=== PATIENT | male | born 1935 | race Caucasian/White ===

== ENCOUNTER 2019-05-28 11:58 | Inpatient (IN) | payer MEDICARE, BC ==
[~2019-05-28] VITALS: Ht 172.7 cm; Wt 77.2 kg
[~2019-05-28 11:58] MED LIST: ASPIRIN 81M81 MG/TA2 PO; FISH OIL SUPER1 SGL PO; GLUCOSAMINE & C1 TA3 PO; LOPRESSOR100 MG PO; PRINZIDE 12.5 M1 TA1 PO; VITAMIN D31000 IU PO; ZOCOR 10MG10 MG PO
[2019-05-28] MEDS ORDERED: ALBUTEROL S0.4 MG/ML (13:39)
[2019-05-28] MEDS ORDERED: ELIQUIS 2.5 PO (13:39)
[2019-05-28] MEDS ORDERED: CARDIZEM LA120 MG PO (13:44)
[2019-05-28] MEDS ORDERED: SYNTHROID0.075 MG/T PO (13:44)
[2019-05-28] MEDS ORDERED: K-DUR 10 MEQ T10 MEQ PO (13:45)
[2019-05-28] MEDS ORDERED: ZOCOR 20MG20 MG PO (13:47)
[2019-05-28] MEDS ORDERED: THEO-24 20200 MG/CAP PO (13:48)
[2019-05-28] MEDS ORDERED: RT SPIRIVA18 MCG IH (13:48)
[2019-05-28] MEDS ORDERED: ALBUTEROL0.83 MG/ML (13:50)
--- NOTE | 2019-05-28 14:30 | NUR ---
Patient here from [facility]. Alert and oriented x 3. Patient and family oriented to room. Initial and [address] Mina for orders. Denies further needs at this time.
[2019-05-28 14:39] VITALS: BP 179/75; PULSE 72; TEMP 97.5
[2019-05-28 16:01] VITALS: BP 182/79; PULSE 67; TEMP 97.7
--- NOTE | 2019-05-28 19:29 | NUR ---
Dr. Mina was notified of increased BP. Hospitalist consulted. Patient has done well. Sitting up on edge of bed eating Jello. denies pain. States he did have some liquid stool before transfering from marlette. Fluids infusing per orders to right hand IV. Denies further needs at this time. Reported off to photographer apprentice.
--- NOTE | 2019-05-28 20:00 | NUR ---
Pt in bed, is alert and oriented x4. Has oxygen on at 3L/NC, chronic dependency. Abd soft, hypoactive BS noted. Has not vomited since taking few clear liquids earlier, abd distended but soft. IV to right hand with IVF infusing without problem. Jessee CORDOVA in to see pt.
[2019-05-28 20:09] VITALS: BP 163/72; PULSE 94; TEMP 98.1
--- NOTE | 2019-05-28 22:00 | NUR ---
HS meds given including Percocet for mild discomfort and sleep. Telemetry placed on patient, noted SR.
[2019-05-29] VITALS (8 sets, daily range): BP systolic 119–181; BP diastolic 55–82; PULSE 62–80; TEMP 97.4–98.5
[2019-05-29] MEDS ORDERED: BROVANA15 MCG/2 M IH (00:03)
--- NOTE | 2019-05-29 06:00 | NUR ---
Denies pain, no nausea or vomiting this shift. Has had no BMs this shift.
--- NOTE | 2019-05-29 06:45 | NUR ---
Report on from Carmella manager change nurse
[2019-05-29 07:18] LABS: BASO % 0.4 % (0.0-2.0); EOS # 0.4 (0.0-0.7); EOS % 5.6 % (0-4.0); GRAN # 4.6 (1.4-6.5); GRAN % 67.7 % (42.2-75.2); HEMOGLOBIN 11.9 g/dl (13.5-18.0); LYMPH # 1.1 (1.2-3.4); LYMPH % 15.9 % (20.0-51.0); MEAN CELL VOLUME 85 fl (80.0-100.0); MEAN CORPUSCULAR HEMOGLOBIN 29 pg (27.0-31.0); MEAN CORPUSCULAR HGB CONC 34 g/dl (33.0-37.0); MONO # 0.6 (0.1-0.6); MONO % 9.4 % (1.7-9.3); PLATELET COUNT 177 K/mm3 (130-400); RED BLOOD COUNT 4.14 M/mm3 (4.20-5.60); REDCELL DISTRIBUTION WIDTH-CV 14.3 % (11.5-14.5)
[2019-05-29 07:30] LABS: CALCIUM 8.5 mg/dL (8.4-10.2); CREATININE, serum 1.51 (0.66-1.25); MAGNESIUM 1.6 mg/dL (1.6-2.3); POTASSIUM 3.5 mmol/L (3.4-5.0)
--- NOTE | 2019-05-29 07:30 | NUR ---
Assessment B/P 191/71 P 71 Nurse Benita notified. IV R hand with LR 1000ml @60ml/hr wrapped in coban dressing with no redness or swelling. Pt is on 3 Liter oxygen via nasal cannula 98%. Pt on telemetry monitoring and complains of no pain at this time.
--- NOTE | 2019-05-29 08:00 | NUR ---
Patient in bed resting. Alert and oriented x 3. Shift assessment complete. States he has been passing gas had a BM today. Tolerating diet without complications. Denies further needs at this time.
--- NOTE | 2019-05-29 08:00 | NUR ---
Pt tolerated clear liquid diet and states "he is ready for some solid food. Advise take it easy
--- NOTE | 2019-05-29 08:30 | NUR ---
vital sign rechecked b/p 171/75 nurse Benita notified and administered morning medicine.
--- NOTE | 2019-05-29 10:00 | NUR ---
vss b/p 161/83 Nurse notified pt sitting in recliner call light in place.
--- NOTE | 2019-05-29 10:39 | NUR ---
Resident Care Technician spoke with ALEXIA Duke who reports patient did well with therapy and that she is recommending home. SW met with patient to discuss discharge planning. Patient lives in [place] with his Adele (ph#[phone]). Patient sees Dr. Amanda for primary care and has medications delivered to his home by [facility]. Patient also utilizes [facility] in [place] for certain medications. Patient has home oxygen provided by [facility] and no other DME. Patient reports independence with ADLS. Patient states his son Abdiaziz (ph#[phone]) is his DPOA-HC although there is no copy in the EMR. Patient plans on returning home upon discharge with his family providing transportation. No additional needs identified at this time.
--- NOTE | 2019-05-29 11:00 | NUR ---
VITAL SIGNS B/P 181/75 NURSE JAC NOTIFIED
--- NOTE | 2019-05-29 11:15 | NUR ---
REPORTED OFF TO JAC PACE
--- NOTE | 2019-05-29 11:41 | NUR ---
Initial visit; Patient thanked Nail Machine Operator for looking in on him and offering spiritual care, especially listening and offering God's blessings.
--- NOTE | 2019-05-29 20:00 | NUR ---
Report received. Assumed care for night time babysitter. A&Ox3. Assessment complete. VS stable. Denies pain/nausea. Short of breath with activity. O2@3L/NC. Up to bathroom at this tsuk-ZQ-chcar/liquid-medium. Voiding without difficulty. Tolerating diet. R hand IV with LR@60ml/hr. Requesting something for sleep later this shift. Plan of care discussed for this shift. Denies questions/concerns. Call light in reach. Will monitor.
[2019-05-30] VITALS (18 sets, daily range): BP systolic 129–167; BP diastolic 46–82; PULSE 69–90; TEMP 97.9–99.2
--- NOTE | 2019-05-30 03:00 | NUR ---
C/O "sour stomach." States he at to many things at dinner time that didnt go together and now he has heartburn/sour stomach. Has been trying to make himself vomit "to get rid of all the acid." Did have 100mls of undigested food emesis. Bowel sounds active in all four quadrants, denies abdominal pain, passing gas and +BM. States "this doesnt feel like what I had before-this is just heartburn/stomach acid." Cherylefrisiah given per dr witt. WIll monitor.
--- NOTE | 2019-05-30 03:35 | NUR ---
Resting in bed eyes closed. NO s/s of discomfort noted.
--- NOTE | 2019-05-30 06:45 | NUR ---
Report on patient from Megan PACE
--- NOTE | 2019-05-30 07:00 | NUR ---
Assessment complete patient resting VSS, telemetry intact O2 3l NC. Patient c/o no pain just burining sensation in stomach with a sour taste. Refused breakfast tray at this time. Had N/V spell last will monitor for N/V and encouraged to drink fluid. IV Right hand no redness or swelling with LR @ 60ml/hr, passing flatus and call light in place bed in low position.
--- NOTE | 2019-05-30 07:31 | NUR ---
Lying in bed on right side with eyes closed. Opens eyes when name called out. Alert and oriented x3. Patient denies pain. Says that he has a sour stomach. Still has been passing gas. Abd rounded and soft. Bowel sounds active in all four quadrants. Patient does not want to eat breakfast this morning due to the sour stomach he has. Encouraged patient to eat ice chips. Oxygen is on at 3L/NC. Patient denies any further needs at this time.
[2019-05-30 07:49] LABS: CALCIUM 8.9 mg/dL (8.4-10.2); CREATININE, serum 1.42 (0.66-1.25); MAGNESIUM 1.5 mg/dL (1.6-2.3); POTASSIUM 3.1 mmol/L (3.4-5.0)
--- NOTE | 2019-05-30 08:30 | NUR ---
Up walking in the cherry with TRASH COLLECTOR TRUCK DRIVER for approximetly 15 min. tolerated walking with no complaints.
--- NOTE | 2019-05-30 10:00 | NUR ---
Educated pateint on drinking protein supplement shakes to help him maintain nurishments levels.
--- NOTE | 2019-05-30 11:31 | NUR ---
reported off to Geetha PACE
--- NOTE | 2019-05-30 13:21 | NUR ---
Patient to CT via wheelchair.
--- NOTE | 2019-05-30 13:55 | NUR ---
Receive call from radiology that the patient does demonstrate a small bowel obstruction on his CT. Dr. Mina notified of results. No new orders at this time.
--- NOTE | 2019-05-30 15:30 | NUR ---
Patient to veterinarian laboratory animal care via bed by gold leaf laborer staff.
--- NOTE | 2019-05-30 15:52 | NUR ---
SEE MERGE FOR ALL MEDICATION ADMINISTRATION TIMES, INTRA/POST SEDATION ASSESSMENT.
--- NOTE | 2019-05-30 16:57 | NUR ---
Patient to room via bed by laborer gold leaf nurses. Patient alert and oriented x3. Denies pain. TL Band in place to right radial artery. No bleeding noted from site. Family and dietitian in room with the patient.
--- NOTE | 2019-05-30 18:09 | NUR ---
Lying in bed with eyes open. Having soreness in right radial artery area. TL Band still in place, explained importance of keeping the band in place to ensure bleeding has stopped and that after 1900 they will slowly start to let some of the air out of it. Patient verbalizes understanding. No other discomforts. Oxygen on at 3L/NC. Abd still distended and firm. Denies being able to pass gas. Has no appetite and only wants to eat ice chips at this time. Son in room with the patient. Patient denies further needs at this time.
--- NOTE | 2019-05-30 20:00 | NUR ---
Report received. Assumed care for shift leader. A&Ox3. Assessment complete. VS stable. Right radial cath site with compression band applied. Scant amount of red drainage noted. States the pressure is painful but denies needing intervention. Denies nausea. Short of breath without activity. Plan of care discussed for NPO at midnight for possible surgical procedure in AM. Verbalizes understanding. Denies questions/concerns. Teaching complete on post heart cath procedure and to notify this nurse if any active bleeding. Call light in reach. Will monitor.
[2019-05-31] VITALS (12 sets, daily range): BP systolic 103–176; BP diastolic 54–88; PULSE 62–90; TEMP 97.8–98.4
--- NOTE | 2019-05-31 06:00 | NUR ---
Rested better this shift than previous. No c/o nausea/pain. Has remained NPO since midnight. Radial cath site remained WNL-covered with bandaids. Denies needs. WIll monitor.
[2019-05-31 07:35] LABS: BASO % 0.2 % (0.0-2.0); EOS # 0.2 (0.0-0.7); EOS % 4.4 % (0-4.0); GRAN % 72.7 % (42.2-75.2); HEMOGLOBIN 11.4 g/dl (13.5-18.0); LYMPH # 0.7 (1.2-3.4); LYMPH % 12.9 % (20.0-51.0); MEAN CELL VOLUME 86 fl (80.0-100.0); MEAN CORPUSCULAR HEMOGLOBIN 28 pg (27.0-31.0); MEAN CORPUSCULAR HGB CONC 33 g/dl (33.0-37.0); MONO # 0.5 (0.1-0.6); MONO % 9.3 % (1.7-9.3); PLATELET COUNT 157 K/mm3 (130-400); PROTHROMBIN TIME 11.8 SECONDS (9.7-12.8); RED BLOOD COUNT 4.01 M/mm3 (4.20-5.60); REDCELL DISTRIBUTION WIDTH-CV 14.5 % (11.5-14.5)
[2019-05-31 07:38] LABS: HEMATOCRIT 34.3 % (42.0-52.0)
[2019-05-31 07:42] LABS: ALBUMIN 3.4 gm/dL (3.5-5.0); BILIRUBIN,TOTAL 0.8 mg/dL (0.0-1.0); CALCIUM 8.4 mg/dL (8.4-10.2); CREATININE, serum 1.54 (0.66-1.25); POTASSIUM 3.6 mmol/L (3.4-5.0); TOTAL PROTEIN 5.9 gm/dL (6.4-8.2)
--- NOTE | 2019-05-31 08:00 | NUR ---
Patient resting in bed at this time. Patient is alert and oriented, answers questions appropriately. Patient denies pain or nausea at this time, call light within reach.
--- NOTE | 2019-05-31 12:28 | NUR ---
Patient left floor to pre op via bed. Pre op scrub completed. Patient had a medium liquid stool just prior to leaving floor.
--- NOTE | 2019-05-31 16:26 | NUR ---
PT NOT AVAILABLE AND IN SURGERY.
--- NOTE | 2019-05-31 17:55 | NUR ---
Patient arrived to floor from PACU via bed. Patient is alert and oriented, falls asleep quickly, rouses easily. NG tube is clamped per order. Givens in place, draining clear yellow urine. Post op checks initiated. Patient on 6L via oxymask, SpO2 100%. Family at bedside, patient denies needs at this time, call light within reach.
--- NOTE | 2019-05-31 20:00 | NUR ---
PT COMPLAINS OF ITCHING, BENADRYL 25MG IVP GIVEN AT THIS TIME. RESPIRATIONS LESS LABORED, OXYMASK ON AT 6L. A.ANNIKA GLASS FINISHER IN TO SEE PATIENT. PATIENT REPORTS FEELING LESS SHORT OF BREATH AFTER BREATHING TX. HAS YELLOW URINE IN KERNS TUBING. NO EDEMA NOTED TO LEGS. HAS MIDLINE DRSG INTACT WITH 2 BANDAIDS TO ABDOMEN. EPIDURAL CATH UPPER BACK WITH DRAINAGE NOTED. NGT TO LEFT NARE TO LIS DUE TO PATIENT FEELING NAUSEATED. SL TO LFT AC AND LFT FOREARM.
[2019-05-31 20:27] LABS: HEMOGLOBIN 12.1 g/dl (13.5-18.0); MEAN CELL VOLUME 87 fl (80.0-100.0); MEAN CORPUSCULAR HEMOGLOBIN 29 pg (27.0-31.0); MEAN CORPUSCULAR HGB CONC 33 g/dl (33.0-37.0); MEAN PLATELET VOLUME 9.7 fl (7.4-10.4); PLATELET COUNT 147 K/mm3 (130-400); REDCELL DISTRIBUTION WIDTH-CV 14.7 % (11.5-14.5)
[2019-05-31 20:35] LABS: CREATININE, serum 1.68 (0.66-1.25); HEMATOCRIT 36.5 % (42.0-52.0); POTASSIUM 4.1 mmol/L (3.4-5.0)
[2019-05-31 20:54] LABS: BAND 4 % (0-10); LYMPHOCYTE 4 % (20.0-51.0); NEUTROPHILS 90 % (42.0-75.2); PLATELET ESTIMATE NORMAL (NORMAL)
[2019-05-31 21:30] LABS: ARTERIAL BLD GAS O2 SATURATION 96.2 % (92-100); ARTERIAL BLD GAS TCO2 CT 15.5; ARTERIAL BLOOD GAS BASE EXCESS -10.7 (-2-2); ARTERIAL BLOOD GAS HCO3 14.5 meq/L (22-26); ARTERIAL BLOOD GAS PCO2 30.6 mmHg (35-45); ARTERIAL BLOOD GAS PO2 84.7 mmHg (80-100); ARTERIAL BLOOD GAS pH 7.29 (7.35-7.45)
--- NOTE | 2019-05-31 21:30 | NUR ---
O2 AT 3LNC. ASSISTED TO BSC WITH 2, PT THOUGHT HE NEEDED TO HAVE A BM. NO FLATUS OR STOOL AT THIS TIME. BACK TO BED.
--- NOTE | 2019-05-31 22:00 | NUR ---
CLAMPED NGT, PATIENT DENIES NAUSEA. ABLE TO TAKE HS PO MEDS AT THIS TIME. HAS USED PRN DOSE OF THE EPIDURAL.
[2019-06-01 00:31] VITALS: BP 136/62; PULSE 79; TEMP 97.9
[2019-06-01 03:29] VITALS: BP 146/68; PULSE 80; TEMP 97.5
--- NOTE | 2019-06-01 04:00 | NUR ---
ASSISTED TO BSC, TRANSFERS BETTER THIS TIME. NO FLATUS OR STOOL. BACK TO BED. IVF INFUSING TO LEFT AC WITHOUT REDNESS OR SWELLING. NGT REMAINS CLAMPED.
[2019-06-01 06:41] LABS: HEMOGLOBIN 10.8 g/dl (13.5-18.0); MEAN CELL VOLUME 87 fl (80.0-100.0); MEAN CORPUSCULAR HEMOGLOBIN 29 pg (27.0-31.0); MEAN CORPUSCULAR HGB CONC 33 g/dl (33.0-37.0); MEAN PLATELET VOLUME 10.3 fl (7.4-10.4); PLATELET COUNT 168 K/mm3 (130-400); RED BLOOD COUNT 3.77 M/mm3 (4.20-5.60); REDCELL DISTRIBUTION WIDTH-CV 14.7 % (11.5-14.5)
[2019-06-01 06:54] LABS: CALCIUM 8.1 mg/dL (8.4-10.2); CREATININE, serum 1.79 (0.66-1.25); HEMATOCRIT 32.7 % (42.0-52.0); MAGNESIUM 1.8 mg/dL (1.6-2.3)
[2019-06-01 07:11] LABS: BAND 21 % (0-10); LYMPHOCYTE 6 % (20.0-51.0); NEUTROPHILS 68 % (42.0-75.2); PLATELET ESTIMATE NORMAL (NORMAL)
--- NOTE | 2019-06-01 08:00 | NUR ---
Patient in bed resting. Alert and oriented x 3. Assessment complete. Midline incision with gauze is CDI. Lap sites x 2 with bandaids CDI. States soreness to abdomen. States he has not passed gas yet but is belching. Epidural site intact. Fluids infusing per orders. Denies further needs at this time.
[2019-06-01 08:29] VITALS: BP 162/71; PULSE 94; TEMP 98.4
[2019-06-01 11:08] LABS: ALBUMIN 3.3 gm/dL (3.5-5.0); BILIRUBIN,TOTAL 0.5 mg/dL (0.0-1.0); CALCIUM 8.2 mg/dL (8.4-10.2); CREATININE, serum 1.84 (0.66-1.25); PHOSPHOROUS 2.9 mg/dL (2.5-4.5); POTASSIUM 4.1 mmol/L (3.4-5.0); TOTAL PROTEIN 5.6 gm/dL (6.4-8.2)
--- NOTE | 2019-06-01 11:13 | NUR ---
Follow-up visit; Patient and son thanked for looking in on Shane to let him know he is being thought of and prayed for.
[2019-06-01 11:15] LABS: PRE ALBUMIN 9.5 mg/dL (17.6-36.0)
--- NOTE | 2019-06-01 11:30 | NUR ---
Patient states he feels as if though his meds are stuck in his throat, Bree GALLO in room. Contacted Dr. Mina about discontinuing NG tube. NG tube discontinued and patient was able to pass pills. Notified hospitalist.
[2019-06-01 12:04] VITALS: BP 178/86; PULSE 96; TEMP 98.3
[2019-06-01 17:10] VITALS: BP 176/86; PULSE 95; TEMP 97.9
--- NOTE | 2019-06-01 18:18 | NUR ---
Patient has done well throughout the day. TPN initiated today, turner maintained to dependent drainage with clear yellow urine. Denies pain at this time. Tolerating clear liquids. Denies further needs at this time. Will report off to spinning and winding supervisor.
[2019-06-01 20:41] VITALS: BP 161/77; PULSE 95; TEMP 98.7
--- NOTE | 2019-06-01 20:45 | NUR ---
Pt. sitting up in bed watching TV at this time. Pt. is A&OX3, assessment complete. PICC to rt.upper arm patent, TPN infusing per orders. Epidural patent. Pt. denies pain. Midline incision and 2 abd. lap sites cdi. Pt. denies further needs, call light within reach.
[2019-06-02 00:37] VITALS: BP 123/63; PULSE 87; TEMP 97.5
[2019-06-02 04:25] VITALS: BP 146/69; PULSE 71; TEMP 99
[2019-06-02 07:45] LABS: BASO % 0.1 % (0.0-2.0); CALCIUM 8.3 mg/dL (8.4-10.2); CREATININE, serum 1.53 (0.66-1.25); GRAN # 12.2 (1.4-6.5); GRAN % 88.2 % (42.2-75.2); HEMOGLOBIN 10.5 g/dl (13.5-18.0); LYMPH # 0.8 (1.2-3.4); LYMPH % 5.5 % (20.0-51.0); MAGNESIUM 1.9 mg/dL (1.6-2.3); MEAN CELL VOLUME 86 fl (80.0-100.0); MEAN CORPUSCULAR HEMOGLOBIN 29 pg (27.0-31.0); MEAN CORPUSCULAR HGB CONC 33 g/dl (33.0-37.0); MEAN PLATELET VOLUME 10.2 fl (7.4-10.4); MONO # 0.7 (0.1-0.6); MONO % 5.3 % (1.7-9.3); PHOSPHOROUS 2.4 mg/dL (2.5-4.5); PLATELET COUNT 191 K/mm3 (130-400); POTASSIUM 3.4 mmol/L (3.4-5.0); RED BLOOD COUNT 3.69 M/mm3 (4.20-5.60); REDCELL DISTRIBUTION WIDTH-CV 14.6 % (11.5-14.5)
[2019-06-02 07:53] LABS: HEMATOCRIT 31.9 % (42.0-52.0)
[2019-06-02 08:00] VITALS: BP 164/60; PULSE 84; TEMP 98.3
--- NOTE | 2019-06-02 08:00 | NUR ---
Patient in bed resting. Alert and orietned x 3. Assessment complete. TPN infusing per orders to right arm PICC line. Midline incision with gauze dressing with minimal drainge present at distal end of dressing. Lap sites x 2 with bandaids CDI. Givens to dependent drainge with clear yellow urine in bag. Denies pain at this time. denies further needs at this time.
[2019-06-02 11:44] VITALS: BP 174/73; PULSE 72; TEMP 97.5
--- NOTE | 2019-06-02 14:17 | NUR ---
Givens catheter discontinued per orders. Pericare provided. Denies further needs at this time.
--- NOTE | 2019-06-02 15:25 | NUR ---
Patient up ambulating in cherry
[2019-06-02 16:33] VITALS: BP 173/70; PULSE 77; TEMP 97.8
--- NOTE | 2019-06-02 16:55 | NUR ---
awake resting in bed, bedside shift report received from KATELYNN Joy
--- NOTE | 2019-06-02 17:03 | NUR ---
Patient has done well today. Has been up ambulating in halls. Givens catheter discontinued and patient voiding without difficulties. TPN infusing per orders. Denies pain at this time. Reported off to Mayda PACE.
--- NOTE | 2019-06-02 17:28 | NUR ---
sitting up on side of bed having clear liquids and tolerates well
--- NOTE | 2019-06-02 17:54 | NUR ---
had clear liquids and tolerated well, has loose non productive cough and uses incentive spirometer, epidural in place and site CD&I, abdominal dressing with scan amount drainage at distal end, denies needs
--- NOTE | 2019-06-02 18:51 | NUR ---
bedside shift report given to KATELYNN Lr
[2019-06-02 19:12] LABS: COLLECTION METHOD CLEAN CATCH
[2019-06-02 19:22] VITALS: BP 169/65; PULSE 83; TEMP 98.9
[2019-06-02 19:27] LABS: PH 6 (5-8); URINE APPEARANCE Clear; URINE BACTERIA Occasional /hpf; URINE BILIRUBIN Negative (NEGATIVE); URINE BLOOD 2+ (NEGATIVE); URINE COLOR Yellow; URINE GLUCOSE 1+ (NEGATIVE); URINE KETONE Negative (NEGATIVE); URINE LEUKOCYTE ESTERASE 2+ (NEGATIVE); URINE NITRATE Negative (NEGATIVE); URINE PROTEIN(semi-quant) 2+ (NEGATIVE); URINE RBC >50 /hpf; URINE UROBILINOGEN Negative (NEGATIVE)
--- NOTE | 2019-06-02 23:30 | NUR ---
Patient has been worried about his voiding. He stated he keeps having to void continuously. Bladder scanned him and he had 390 in his bladder. Spoke with him several times about trying to get up and set on the toilet instead of using the urinal, he was worried about walking to the bathroom because he would make a mess. He finally agreed and was able to empty his bladder. He is very anxious. Offered him some medication for anxiety but he was worried he would be too drowsy and would wet the bed. Finally got him to wear an incontinent brief. No other changes at this time. Call light within reach.
[2019-06-03] VITALS (7 sets, daily range): BP systolic 143–175; BP diastolic 58–78; PULSE 73–106; TEMP 97.6–99.1
[2019-06-03 06:01] LABS: BASO % 0.1 % (0.0-2.0); EOS # 0.1 (0.0-0.7); EOS % 0.6 % (0-4.0); GRAN # 11.1 (1.4-6.5); GRAN % 83.2 % (42.2-75.2); HEMOGLOBIN 11.3 g/dl (13.5-18.0); LYMPH # 1.2 (1.2-3.4); LYMPH % 8.9 % (20.0-51.0); MEAN CELL VOLUME 85 fl (80.0-100.0); MEAN CORPUSCULAR HEMOGLOBIN 29 pg (27.0-31.0); MEAN CORPUSCULAR HGB CONC 33 g/dl (33.0-37.0); MEAN PLATELET VOLUME 9.5 fl (7.4-10.4); MONO # 0.8 (0.1-0.6); MONO % 5.8 % (1.7-9.3); PLATELET COUNT 184 K/mm3 (130-400); RED BLOOD COUNT 3.96 M/mm3 (4.20-5.60); REDCELL DISTRIBUTION WIDTH-CV 14.6 % (11.5-14.5)
[2019-06-03 06:15] LABS: HEMATOCRIT 33.8 % (42.0-52.0)
[2019-06-03 06:20] LABS: ALBUMIN 3.7 gm/dL (3.5-5.0); BILIRUBIN,TOTAL 0.4 mg/dL (0.0-1.0); C-REACTIVE PROTEIN 2.7 mg/dL (0.0-0.9); CALCIUM 8.7 mg/dL (8.4-10.2); CREATININE, serum 1.38 (0.66-1.25); MAGNESIUM 1.9 mg/dL (1.6-2.3); PHOSPHOROUS 3.4 mg/dL (2.5-4.5); POTASSIUM 3.7 mmol/L (3.4-5.0); TOTAL PROTEIN 6.4 gm/dL (6.4-8.2)
--- NOTE | 2019-06-03 06:30 | NUR ---
Patient continues to have urgency. He had benadryl for anxiety at about 0130 per the epidural protocol. He continues to be anxious about his needing to void urgently. Patients glucose was 78 this am, we gave him juice. No other changes at this time. Call light within reach.
--- NOTE | 2019-06-03 12:07 | NUR ---
UA specimen collected by student nurse and sent to lab at this time.
[2019-06-03 12:12] LABS: COLLECTION METHOD CLEAN CATCH
[2019-06-03 12:27] LABS: PH 7 (5-8); SQUAMOUS EPITHELIAL None Seen /hpf; URINE APPEARANCE Clear; URINE BACTERIA None Seen /hpf; URINE BILIRUBIN Negative (NEGATIVE); URINE BLOOD 1+ (NEGATIVE); URINE COLOR Yellow; URINE GLUCOSE Negative (NEGATIVE); URINE KETONE Negative (NEGATIVE); URINE LEUKOCYTE ESTERASE Negative (NEGATIVE); URINE NITRATE Negative (NEGATIVE); URINE PROTEIN(semi-quant) 2+ (NEGATIVE); URINE UROBILINOGEN Negative (NEGATIVE)
--- NOTE | 2019-06-03 16:35 | NUR ---
Sitting up in chair with eyes open talking with family. Patient happy that anesthesia came and removed epidural. Denies pain presently. Wishes he would have a bowel movement so he can eat regular food. Denies needs at this time.
--- NOTE | 2019-06-03 17:55 | NUR ---
Patient screaming that he needs help. MEENA Lang, enters room and patient on edge of bed saying he needs to pee but he thinks that he already peed on his gown and bed. Patient says that he has gotten himself all worked up and anxious. Encouraged patient to take slow deep breaths in through his nose and out his mouth. Patient requesting breathing treatment. Contacted respiratory and they said they will come up as soon as they can to give a treatment. Reassurance provided to the patient. Patient begins to calm down and says that he is feeling a little better. Patient breathing slows. Patient transfers and sits on seat to walker. Bed linens changed. Gown changed. Patient says that he is much better at this time. Requests to go into bathroom and sit on toilet. Patient ambulates into bathroom with use of walker and sits on toilet. Patient requests to sit a few minutes. Call light provided. Checked back on patient and he says that he was able to urinate but still not able to pass gas. Assisted patient back to bed. Sits on edge of bed. Breathing is better but patient says that he is still needing a breathing treatment. Assisted back into bed into comfortable position. Patient denies any further needs at this time.
--- NOTE | 2019-06-03 19:10 | NUR ---
Lying in bed on right side with eyes open. Denies pain. Says that he is feeling better than he previously did. Says he still needs a breathing treatment. Reassured patient that respiratory was notified and they should be up to give a breathing treatment. Patient denies any needs at this time. Report provided to KATELYNN Lopez.
--- NOTE | 2019-06-03 21:30 | NUR ---
Pt. laying in bed at this time. Pt. is A&OX3, assessment complete. PICC to rt. upper patent, TPN infusing per orders. Pt. denies pain or other needs, call light within reach.
[2019-06-04 03:07] VITALS: BP 123/63; PULSE 87; TEMP 98.4
[2019-06-04 06:32] LABS: HEMOGLOBIN 11.2 g/dl (13.5-18.0); MEAN CELL VOLUME 88 fl (80.0-100.0); MEAN CORPUSCULAR HEMOGLOBIN 28 pg (27.0-31.0); MEAN CORPUSCULAR HGB CONC 32 g/dl (33.0-37.0); MEAN PLATELET VOLUME 10.1 fl (7.4-10.4); PLATELET COUNT 183 K/mm3 (130-400); RED BLOOD COUNT 3.97 M/mm3 (4.20-5.60); REDCELL DISTRIBUTION WIDTH-CV 14.5 % (11.5-14.5)
[2019-06-04 06:38] LABS: HEMATOCRIT 34.9 % (42.0-52.0)
[2019-06-04 06:47] LABS: CALCIUM 8.9 mg/dL (8.4-10.2); CREATININE, serum 1.45 (0.66-1.25); MAGNESIUM 1.8 mg/dL (1.6-2.3); POTASSIUM 4.2 mmol/L (3.4-5.0)
[2019-06-04 07:20] VITALS: BP 140/61; PULSE 77; TEMP 98.1
[2019-06-04 07:25] LABS: BAND 1 % (0-10); EOSINOPHIL 3 % (0-4); LYMPHOCYTE 3 % (20.0-51.0); METAMYELOCYTE 2 % (0-0); NEUTROPHILS 86 % (42.0-75.2); PLATELET ESTIMATE NORMAL (NORMAL)
--- NOTE | 2019-06-04 07:31 | NUR ---
Lying in bed on right side. Patient breathing slightly labored at rest which the patient says is his normal. Has oxygen on at 2L/NC. Lung sounds with expiratory wheezes. Patient abd round and firm. Bowel sounds hypoactive. Patient denies being able to pass gas. Says that he wishes there was something more they could do to get the gas out. Has lack of appetite due to feeling full in abd. 1+ bilat LE edema noted. Patient denies pain, just feels full in abd. Epidural site without redness/drainage/edema with bandaid to site CDI. Patient denies needs at this time.
--- NOTE | 2019-06-04 07:57 | NUR ---
Patient calls this nurse to room. Patient said he took a sip of broth and vomited into basin. Small amount of dark green vomit noted in basin. Patient says that his stomach feels a little bit better since vomiting but it still does not feel great. Son in room with the patient. Explain that I will call the provider to give an update on his status.
--- NOTE | 2019-06-04 08:02 | NUR ---
Dr. Mina updated on patient status. Orders received for KUB and upright. Radiology notified of order. Patient and son updated.
--- NOTE | 2019-06-04 09:42 | NUR ---
Patient had another episode of vomiting dark green emesis. At this time the patient is lying in bed on right side. Eyes closed, respirations even and unlabored. Son in room with the patient. Denies needs at this time.
--- NOTE | 2019-06-04 11:45 | NUR ---
First visit from the clinical documentation specialist. No needs right now.
--- NOTE | 2019-06-04 11:55 | NUR ---
Attempted to insert NG tube three times. Unsuccessful each time. Patient begins to gag each time the tube enters throat and patient gags up the tube and it exits mouth. Patient would like to see if there is something that can be given to "knock me out" or relax him to see if it would go down better that way. Message to Dr. Mina to see if order for Ativan can be received. Morphine administered as prescribed by student nurse, Evelyne, to alleviate some pain that the patient is having. Will await response from Dr. Mina.
--- NOTE | 2019-06-04 12:04 | NUR ---
Morphine administered as prescribed by student nurse, Evelyne.
--- NOTE | 2019-06-04 12:30 | NUR ---
Order received for Ativan. Administered as prescribed by student nurse Evelyne.
[2019-06-04 12:34] VITALS: BP 158/77; PULSE 112; TEMP 98.7
--- NOTE | 2019-06-04 13:15 | NUR ---
NG tube placed by student nurse, Evelyne, with instructor at bedside. Patient tolerates with difficulty. No gastric return. Attempt to flush and inject air, unable to hear over stomach air or bubbling. Chest xray performed. Called and spoke with the radiologist and it was suggested to remove NG as it appeared to be in the right mainstem bronchus. Student nurse Evelyne and her instructor remove NG tube. KATELYNN Yeboah, in room and attempts to insert NG tube. Unsuccessful. Edilia contacted Dr. Mina and provided update that we are not able to get NG tube down.
--- NOTE | 2019-06-04 15:05 | NUR ---
Patient to CT and radiology via cart by radiology staff.
--- NOTE | 2019-06-04 15:35 | NUR ---
Patient back to room. Radiology was able to place NG tube in left nare. Patient abdomen soft and not as distended. Patient says that he is feeling a little better than what he was. Transferred from cot to bed. Connected NG to low intermittent suction. In bucket that radiology brought patient up with, there was 250mL dark green/brown drainage from NG tube. Family in room with the patient. Patient denies needs at this time.
[2019-06-04 16:55] VITALS: BP 133/72; PULSE 101; TEMP 98.7
--- NOTE | 2019-06-04 17:56 | NUR ---
Patient heart rate on telemetry steady in 120-130's. Spoke with TASHA Marcum, and provided update. Orders received for EKG. Cardiopulmonary contacted and will come perform EKG.
[2019-06-04 19:26] VITALS: BP 130/76; PULSE 113; TEMP 97.7
--- NOTE | 2019-06-04 20:00 | NUR ---
PT REPORTS FEELING IF HE CAN'T GET ENOUGH OXYGEN WITH THE NASAL CANNULA, OXYPLUS MASK APPLIED. NGT TO LEFT NARE, CONFIRMED PLACEMENT IN STOMACH WITH AIR BOLUS. HAS GREEN DRAINAGE IN TUBING AND CANNISTER FROM NGT OUTPUT. IS ALERT AND ORIENTED. LUNG SOUNDS WITH CRACKLES. ABDOMEN DISTENDED, BOWEL SOUNDS NOTED. HAS MIDLINE INCISION WITH LEONIDES INTACT AND 2 ABD LAP SITES TO LEFT ABD WITH LEONIDES INTACT. VOIDING PER URINAL 100CC AT A TIME.
--- NOTE | 2019-06-04 22:24 | NUR ---
PT IN BED. HAS TPN INFUSING TO RIGHT PICC WITHOUT PROBLEM. MEDICATED WITH IV LOPRESSOR AT THIS TIME, WELL MORPHINE 2MG IVP FOR ABDOMINAL SORENESS. SCDS PLACED ON PATIENT.
[2019-06-05] VITALS (7 sets, daily range): BP systolic 136–187; BP diastolic 68–101; PULSE 88–131; TEMP 97.6–98.6
--- NOTE | 2019-06-05 02:00 | NUR ---
PT REMAINS IN BED, CHANGED DEPENDS AT THIS TIME. VOIDING PER URINAL. NO FLATUS OR BM AT THIS TIME. NGT TO LIS WITH GREEN DRAINAGE IN TUBING. OFFERED TO REPOSITION PT TO RIGHT SIDE, REFUSES HE IS NOT COMFORTABLE LAYING ON THAT SIDE. HAS CALL LIGHT WITHIN REACH.
--- NOTE | 2019-06-05 06:00 | NUR ---
DJ=106hm/dl this AM. Has used urinal this shift without problem. TPN infusing to right PICC without problem. NG with 200cc out this shift.
[2019-06-05 07:33] LABS: ALBUMIN 3.3 gm/dL (3.5-5.0); BILIRUBIN,TOTAL 0.4 mg/dL (0.0-1.0); C-REACTIVE PROTEIN 2.6 mg/dL (0.0-0.9); CALCIUM 8.3 mg/dL (8.4-10.2); CREATININE, serum 1.45 (0.66-1.25); MAGNESIUM 1.7 mg/dL (1.6-2.3); PHOSPHOROUS 3.3 mg/dL (2.5-4.5); POTASSIUM 3.9 mmol/L (3.4-5.0); TOTAL PROTEIN 5.8 gm/dL (6.4-8.2)
--- NOTE | 2019-06-05 08:45 | NUR ---
PICC intact right upper arm with sterile dressing change done with insertion site cleansed with chloraprep x 1, chlorhexidine impregnated disk applied, skin prep, stat lock, and tegaderm applied. no signs or symptoms of IV complications noted. no concerns voiced. re-wrapped with regis to protect catheter.
[2019-06-05 08:52] LABS: HEMOGLOBIN 10.4 g/dl (13.5-18.0); MEAN CELL VOLUME 86 fl (80.0-100.0); MEAN CORPUSCULAR HEMOGLOBIN 28 pg (27.0-31.0); MEAN CORPUSCULAR HGB CONC 33 g/dl (33.0-37.0); MEAN PLATELET VOLUME 10.3 fl (7.4-10.4); PLATELET COUNT 163 K/mm3 (130-400); REDCELL DISTRIBUTION WIDTH-CV 14.3 % (11.5-14.5)
[2019-06-05 08:54] LABS: HEMATOCRIT 31.9 % (42.0-52.0)
[2019-06-05 10:12] LABS: BAND 5 % (0-10); EOSINOPHIL 1 % (0-4); LYMPHOCYTE 4 % (20.0-51.0); METAMYELOCYTE 1 % (0-0); NEUTROPHILS 81 % (42.0-75.2); PLATELET ESTIMATE NORMAL (NORMAL)
--- NOTE | 2019-06-05 11:24 | NUR ---
SW met with the patient and his son, Abdiaziz, to follow up and review discharge plan. The patient reports that he would like to return home, if able. Abdiaziz reports that him and his family have been discussing if the patient would need swing bed at [facility] or some extra help upon discharge. SW discussed post-acute rehab and home health. The patient's son reports that it is something that him and his family will re-assess when it gets closer to discharge. SW to continue to follow.
--- NOTE | 2019-06-05 13:28 | NUR ---
Notified hospitalist of increased BP and HR. Given apresoline per VORB.
[2019-06-05 15:39] LABS: ARTERIAL BLD GAS O2 SATURATION 89.3 % (92-100); ARTERIAL BLD GAS TCO2 CT 23.5; ARTERIAL BLOOD GAS BASE EXCESS -0.5 (-2-2); ARTERIAL BLOOD GAS HCO3 22.5 meq/L (22-26); ARTERIAL BLOOD GAS PCO2 31.9 mmHg (35-45); ARTERIAL BLOOD GAS PO2 51.6 mmHg (80-100); ARTERIAL BLOOD GAS pH 7.47 (7.35-7.45)
--- NOTE | 2019-06-05 19:52 | NUR ---
Notified hospitalist, bladder scanned patient for 277ml. States he has been urinating approximately every 10 minutes without much output. Order for turner catheter to be placed entered. NG placement confirmed. Has had approximately 200 ml of green output this AM. Having small amount of clear output from NG, attempted to irrigate as no output this afternoon, NG flushing without difficulty. Family at bedside. Denies further needs at this time. Reported off to press operator automatic.
--- NOTE | 2019-06-05 20:15 | NUR ---
Pt. laying in bed at this time. Pt. is A&OX3, assessment complete. PICC to rt. upperarm patent, TPN infusing per orders. Givens catheter placed at this time per orders. 16 Fr., clear yellow urine noted, 10 CC instilled in balloon. Pt. tolerated well. Abd. incisions well approximated. Pt. denies pain or other needs, call light within reach.
[2019-06-06 04:18] VITALS: BP 150/87; PULSE 128; TEMP 97.5
[2019-06-06 07:34] LABS: MEAN CELL VOLUME 89 fl (80.0-100.0); MEAN CORPUSCULAR HGB CONC 32 g/dl (33.0-37.0); MEAN PLATELET VOLUME 10.7 fl (7.4-10.4); PLATELET COUNT 157 K/mm3 (130-400); RED BLOOD COUNT 3.31 M/mm3 (4.20-5.60); REDCELL DISTRIBUTION WIDTH-CV 14.2 % (11.5-14.5)
[2019-06-06 07:38] LABS: HEMATOCRIT 29.3 % (42.0-52.0); HEMOGLOBIN 9.5 g/dl (13.5-18.0); MEAN CORPUSCULAR HEMOGLOBIN 29 pg (27.0-31.0)
[2019-06-06 07:44] LABS: ALBUMIN 2.9 gm/dL (3.5-5.0); BILIRUBIN,TOTAL 0.3 mg/dL (0.0-1.0); CALCIUM 7.4 mg/dL (8.4-10.2); CREATININE, serum 1.35 (0.66-1.25); MAGNESIUM 1.9 mg/dL (1.6-2.3); POTASSIUM 3.5 mmol/L (3.4-5.0); TOTAL PROTEIN 5.3 gm/dL (6.4-8.2)
[2019-06-06 07:51] LABS: PRE ALBUMIN 15.9 mg/dL (17.6-36.0)
--- NOTE | 2019-06-06 08:00 | NUR ---
Patient in bed resting. Alert and oriented x 3. Assessment complete. Patient up to recliner, with standby assist and walker. NG to LIS. Denies pain at this time. Abdomen less distended this am than yesterday. Givens to dependent drainage with clear yellow urine in bag. SCDs to BLE. Midline incision and lap x 2 with edges well approximated. Denies pain at this time. States he was able to pass some gas this AM. Denies further needs at this time.
[2019-06-06 08:11] LABS: LYMPHOCYTE 2 % (20.0-51.0); METAMYELOCYTE 1 % (0-0); NEUTROPHILS 94 % (42.0-75.2); PLATELET ESTIMATE NORMAL (NORMAL)
[2019-06-06 08:56] VITALS: BP 150/77; PULSE 117; TEMP 98.1
[2019-06-06 13:00] VITALS: BP 169/81; PULSE 112; TEMP 97.4
[2019-06-06 16:33] VITALS: BP 152/72; PULSE 117; TEMP 98.1
--- NOTE | 2019-06-06 18:32 | NUR ---
Patient has done well thoughout the day. NG clamped this afternoon, patient tolerating without nausea. States he feels a little bit more distended after taking clear liquids but tolerating well. Has been up ambulating in halls. States he has been able to pass some gas today, no BM yet. Denies pain or further needs at this time. Will report off to slot shift manager.
[2019-06-06 20:20] VITALS: BP 143/65; PULSE 114; TEMP 97.7
[2019-06-06 21:29] LABS: 12 HR URINE TOTAL VOLUME 0.6 L
--- NOTE | 2019-06-06 21:30 | NUR ---
Pt. laying in bed at this time. Pt. is A&OX3, assessment complete. PICC to rt. upper arm TPN infusing to Red port. Cardizem GTT to purple port. Pt. denies pain or other needs, call light within reach.
[2019-06-07] VITALS (7 sets, daily range): BP systolic 120–158; BP diastolic 50–76; PULSE 78–114; TEMP 97.2–98.1
[2019-06-07 06:57] LABS: MEAN CELL VOLUME 89 fl (80.0-100.0); MEAN CORPUSCULAR HEMOGLOBIN 28 pg (27.0-31.0); MEAN CORPUSCULAR HGB CONC 32 g/dl (33.0-37.0); MEAN PLATELET VOLUME 10.5 fl (7.4-10.4); RED BLOOD COUNT 3.53 M/mm3 (4.20-5.60); REDCELL DISTRIBUTION WIDTH-CV 14.3 % (11.5-14.5)
[2019-06-07 07:08] LABS: CALCIUM 8.3 mg/dL (8.4-10.2); CREATININE, serum 1.53 (0.66-1.25); POTASSIUM 4.3 mmol/L (3.4-5.0)
[2019-06-07 07:09] LABS: HEMATOCRIT 31.5 % (42.0-52.0); PLATELET COUNT 262 K/mm3 (130-400)
--- NOTE | 2019-06-07 07:52 | NUR ---
Pt complains of no pain at incision site. Has not had bowel movement in "more than two weeks". Abdominal incision CDI, 20 shady. Small bruise at bottom of incision site. Pt in good spirits.
[2019-06-07 08:43] LABS: LYMPHOCYTE 2 % (20.0-51.0); METAMYELOCYTE 2 % (0-0); NEUTROPHILS 89 % (42.0-75.2); PLATELET ESTIMATE NORMAL (NORMAL)
--- NOTE | 2019-06-07 13:39 | NUR ---
Pt in good spirits. Resting comfortably in bed. Abedominal incision well approximated, no drainage, 20 intact shady. Small bruise at bottom of incision. Pt denies any pain.
--- NOTE | 2019-06-07 13:53 | NUR ---
DINESH met with the patient, his (Adele), son (Abdiaziz), and a friend to follow up and to review discharge plan. The patient was sleeping. The patient was advanced to a full liquid diet today. The patient's reports that they may be interested in some home health. The patient's son then reported that the patient is still having troubles just getting to the bathroom. He states that they may be looking at and interested in swing bed at [facility] as a first preference and [facility] as a second preference. The patient's son reports that he would like to talk to the patient this afternoon, when he wakes up about this option. SW to follow up with the patient and his family tomorrow morning on preference. DINESH to continue to follow.
--- NOTE | 2019-06-07 18:00 | NUR ---
Patient has been doing well today. He seems to be feeling better and is in better spirits. Denies nausea. Tolerating full liquid diet well. He sat up in the chair several times. He got a little anxious this afternoon, ativan given. His family was at bedside most the afternoon. No other changes at this time. Call light within reach.
[2019-06-08 03:19] VITALS: BP 146/55; PULSE 103; TEMP 97.8
--- NOTE | 2019-06-08 05:35 | NUR ---
Patient has rested well throughout the night. Noted to get grumpy with staff when his bladder would spasm around the catheter. This happened twice and patient was very unhappy. Catheter manipulated by this nurse and no more bladder spasms have occured. Catheter drains clear, yellow urine. TPN continues to RAC. Incisions are well approximated with no s/sx of infection noted. Catheter care completed by staff along with incontinent cares. SBA with staff for transfers. Will continue to monitor.
--- NOTE | 2019-06-08 06:19 | NUR ---
Patient awoke this morning and was noted to be yelling out "help me". Staff was at bedside and he started throwing things at her. He stated the daytime caregiver was there and that he was tied down and he stated he thought the staff was the devil. Patient reoriented after some talking and he apologized with staff for "making a fool of myself." Patient was given Ativan, as respirations were high and patient stated he would take some to help him calm down. Before patient was reoriented patient kept repeating that he was in hell. Patient given some antiseptic spray for his throat and stated he felt much better. Patient was alert and oriented after being reoriented. This nurse was in the room about 5 minutes prior to this episode and patient was sleeping.
[2019-06-08 07:03] LABS: HEMOGLOBIN 10.5 g/dl (13.5-18.0); MEAN CELL VOLUME 89 fl (80.0-100.0); MEAN CORPUSCULAR HEMOGLOBIN 28 pg (27.0-31.0); MEAN CORPUSCULAR HGB CONC 31 g/dl (33.0-37.0); MEAN PLATELET VOLUME 10.2 fl (7.4-10.4); PLATELET COUNT 283 K/mm3 (130-400); RED BLOOD COUNT 3.78 M/mm3 (4.20-5.60); REDCELL DISTRIBUTION WIDTH-CV 14.2 % (11.5-14.5)
[2019-06-08 07:08] LABS: HEMATOCRIT 33.8 % (42.0-52.0)
[2019-06-08 07:12] LABS: CALCIUM 8.3 mg/dL (8.4-10.2); CREATININE, serum 1.46 (0.66-1.25); MAGNESIUM 2.4 mg/dL (1.6-2.3); PHOSPHOROUS 3.2 mg/dL (2.5-4.5); POTASSIUM 4.3 mmol/L (3.4-5.0)
[2019-06-08 07:17] VITALS: BP 152/71; PULSE 85; TEMP 98.1
[2019-06-08 07:36] LABS: LYMPHOCYTE 4 % (20.0-51.0); METAMYELOCYTE 1 % (0-0); NEUTROPHILS 88 % (42.0-75.2); PLATELET ESTIMATE NORMAL (NORMAL)
--- NOTE | 2019-06-08 08:40 | NUR ---
Pt has some remorse about event during the night but he is getting better. Currently friendly. Abdomenal incison well approximated with 20 shady, small bruise at bottom of incision site. Pt passing gas. No bowel movements.
--- NOTE | 2019-06-08 10:00 | NUR ---
Patient is doing well this morning. He is tolerating full liquids well. Denies pain or nausea. Stated feeling hungry this am. He has walked once. No other changes at this time. Spoke with Dr Mina about stopping TPN today, He wanted to keep it going for now. Call light within reach. Patient has a student nurse today.
[2019-06-08 12:29] VITALS: BP 151/79; PULSE 81; TEMP 98.2
--- NOTE | 2019-06-08 13:26 | NUR ---
Pt resting comfortably in chair. Friendly, pleasant, happy to no longer have NG tube. Abdomenal incision well approximated with 20 shady intact. Pt passing gas but no bowel movement today.
--- NOTE | 2019-06-08 14:04 | NUR ---
DINESH met with the patient and his son to follow up on preference for home health vs SNF. The patient reports that he cannot commit to anything right now, but is thinking home with home health. DINESH provided the patient with Medicare.gov's list of the different home health agencies that serve [place]. The patient and his family would like some time to look over the list. SW to continue to follow.
[2019-06-08 16:21] VITALS: BP 144/69; PULSE 97; TEMP 97.5
--- NOTE | 2019-06-08 18:30 | NUR ---
Patient was a little confused again this afternoon. He was worried about his family leaving and that he keeps getting confused. Explained he could be having some dreams causing this. No complaints of pain or nausea. TPN is to go for 18 hours tonight. Patient is aware his turner is to be discontinued in the morning. No other changes at this time. Call light within reach.
[2019-06-08 19:46] VITALS: BP 127/48; PULSE 92; TEMP 98.9
--- NOTE | 2019-06-08 21:45 | NUR ---
Pt was lying in bed. Pt did state that he was passing gas but has not havea a BM. Pt currently has TPN infusion. Pt did request to have something that would help him to be able to sleep. Pt was given Melatonin 6mg with his night mediations. Pt had no other concerns at this time. Call light is within reach and bed is in lowest position
[2019-06-08 22:34] VITALS: BP 138/81; PULSE 95
[2019-06-09] VITALS (8 sets, daily range): BP systolic 100–134; BP diastolic 42–71; PULSE 79–108; TEMP 97.5–98.9
[2019-06-09 05:54] LABS: BASO % 0.1 % (0.0-2.0); EOS % 0.2 % (0-4.0); GRAN # 12.1 (1.4-6.5); GRAN % 82.3 % (42.2-75.2); HEMOGLOBIN 10.4 g/dl (13.5-18.0); LYMPH # 0.8 (1.2-3.4); LYMPH % 5.2 % (20.0-51.0); MEAN CELL VOLUME 89 fl (80.0-100.0); MEAN CORPUSCULAR HEMOGLOBIN 28 pg (27.0-31.0); MEAN CORPUSCULAR HGB CONC 32 g/dl (33.0-37.0); MEAN PLATELET VOLUME 10.2 fl (7.4-10.4); MONO # 1.4 (0.1-0.6); MONO % 9.3 % (1.7-9.3); PLATELET COUNT 238 K/mm3 (130-400); RED BLOOD COUNT 3.71 M/mm3 (4.20-5.60); REDCELL DISTRIBUTION WIDTH-CV 14.3 % (11.5-14.5)
[2019-06-09 06:04] LABS: CALCIUM 8.2 mg/dL (8.4-10.2); CREATININE, serum 1.42 (0.66-1.25); POTASSIUM 4.3 mmol/L (3.4-5.0)
--- NOTE | 2019-06-09 06:33 | NUR ---
Ambualted in hallway approx 500feet with walker/tolerated well. Givens DCd-bulb intact. Tolerated well.
--- NOTE | 2019-06-09 18:27 | NUR ---
Patient sitting at edge of bed upon shift assessment. Denies any complaints other than hoping to have his diet advanced. Denies pain throughout shift. TPN discontinued along with insulin orders and Q6 accuchecks. Diet advanced to mechanical soft for dinner this evening. Patient took a long walk this afternoon and had a small, loose bowel movement early in the evening. He is hopeful for discharge tomorrow.
--- NOTE | 2019-06-09 19:45 | NUR ---
Report received. 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 Assessment complete. VS stable. A&Ox3. Requesting anxiety medication stating he feels like he is "losing his mind in this little room." Ativan given per order. Denies pain/nausea. Shortness of breath at rest-pursed lip breathing. O2@3L/NC. Tolearing diet. Voiding without difficulty. Had a small BM on day shift and continues to pass gas. Plan of care discussed for this shift to include HS meds/ambulating/calling for needs. Verbalizes understanding. Denies needs. Call light in reach. Will monitor.
[2019-06-10] VITALS (7 sets, daily range): BP systolic 108–137; BP diastolic 51–68; PULSE 84–108; TEMP 97.6–99.5
--- NOTE | 2019-06-10 04:30 | NUR ---
Called nurses station stating he needed help. States he had been sleeping hard and had a bad dream and was incontinent of urine. Assisted with kavita care/bed change. Denies pain/nausea. O2 remains at 3L/NC. VS stable. Rested well this shift-states had the best nights sleep since being here. Encouraged to call for questions or concerns. Verbalizes understanding. Call light in reach. Will monitor.
[2019-06-10 06:16] LABS: MEAN CELL VOLUME 90 fl (80.0-100.0); MEAN CORPUSCULAR HEMOGLOBIN 28 pg (27.0-31.0); MEAN CORPUSCULAR HGB CONC 31 g/dl (33.0-37.0); MEAN PLATELET VOLUME 10.5 fl (7.4-10.4); PLATELET COUNT 235 K/mm3 (130-400); RED BLOOD COUNT 3.61 M/mm3 (4.20-5.60); REDCELL DISTRIBUTION WIDTH-CV 14.2 % (11.5-14.5)
[2019-06-10 06:20] LABS: HEMATOCRIT 32.3 % (42.0-52.0)
[2019-06-10 06:28] LABS: CALCIUM 8.3 mg/dL (8.4-10.2); CREATININE, serum 1.53 (0.66-1.25); POTASSIUM 4.1 mmol/L (3.4-5.0)
[2019-06-10 07:01] LABS: LYMPHOCYTE 6 % (20.0-51.0); METAMYELOCYTE 2 % (0-0); NEUTROPHILS 86 % (42.0-75.2); PLATELET ESTIMATE NORMAL (NORMAL)
--- NOTE | 2019-06-10 08:00 | NUR ---
Patient resting in bed at this time. Patient has expiratory wheezes and a productive cough but denies abdominal pain. Midline is well approximated and shady are intact. Patient denies needs at this time, call light within reach.
--- NOTE | 2019-06-10 17:02 | NUR ---
Patient resting in bedside recliner eating dinner at this time. Patient continues to deny pain or nausea; denies current needs. Call light within reach.
--- NOTE | 2019-06-10 20:30 | NUR ---
Report received. Assumed care for third shift lieutenant. A&Ox3. Assessment complete. Noted to be tachycardic between 100-120. Sitting up in bed visiting with family. States he had a breathing tx thirty minutes ago. HS dose of Metoprolol given. Denies pain/nausea. +flatus/no BM yet. Voiding without difficulty. Dyspnea at rest-pursed lip breathing-O2@3L/NC-Saturation 95%. Midline incision-shady intact-edges well approximated. Lap sites x2-healing. Did not eat much mechanical soft diet for PM meal-had some broth and ice cream. Right upper arm PICC flushed without difficulty. Denies needs. Encouraged to call for questions/concerns. Will monitor.
--- NOTE | 2019-06-10 21:05 | NUR ---
durable medical equipment technician notified of HR consistently running in 120s-130s. Vitals 137/57, HR 108, RR 22, O2 saturation 93% on 3L/NC, temp 98.0. Sitting up in bed using urinal. Denies chest pain/nausea/increased shortness of breath. Received HS dose of Metoprolol approx 20 minutes ago. Will notify provider front desk officer of increase in HR.
--- NOTE | 2019-06-11 03:45 | NUR ---
Up ambulating in hallway. Received Milk of Mag at bedtime. Passing gas but no BM. Denies nausea. Denies needs. Call light in reach. Will monitor.
[2019-06-11 04:05] VITALS: BP 117/65; PULSE 94; TEMP 98.1
[2019-06-11 06:40] LABS: HEMOGLOBIN 10.3 g/dl (13.5-18.0); MEAN CELL VOLUME 89 fl (80.0-100.0); MEAN CORPUSCULAR HEMOGLOBIN 28 pg (27.0-31.0); MEAN CORPUSCULAR HGB CONC 31 g/dl (33.0-37.0); MEAN PLATELET VOLUME 10.8 fl (7.4-10.4); PLATELET COUNT 246 K/mm3 (130-400); RED BLOOD COUNT 3.68 M/mm3 (4.20-5.60); REDCELL DISTRIBUTION WIDTH-CV 14.3 % (11.5-14.5)
[2019-06-11 06:51] LABS: HEMATOCRIT 32.8 % (42.0-52.0)
[2019-06-11 06:55] LABS: CALCIUM 8.4 mg/dL (8.4-10.2); CREATININE, serum 1.67 (0.66-1.25); MAGNESIUM 2.1 mg/dL (1.6-2.3); PHOSPHOROUS 3.8 mg/dL (2.5-4.5)
--- NOTE | 2019-06-11 07:00 | NUR ---
Bedside shift report received from KATELYNN Guzman. PT in bed resitng, per nightshift pt did not get much rest last night after being up trying to have BM. Will continue to monitor.
[2019-06-11 07:02] VITALS: BP 129/53; PULSE 94; TEMP 98.6
[2019-06-11 07:22] VITALS: BP 117/58; PULSE 112; TEMP 98.5
[2019-06-11 07:41] LABS: ANISOCYTOSIS 1+; BAND 7 % (0-10); EOSINOPHIL 1 % (0-4); HYPOCHROMIA 1+; LYMPHOCYTE 9 % (20.0-51.0); NEUTROPHILS 75 % (42.0-75.2); OVALOCYTES 1+; PLATELET ESTIMATE NORMAL (NORMAL)
--- NOTE | 2019-06-11 09:16 | NUR ---
Assessment charted. PT feeling well, wants to have a BM, did have a loose BM, large in size this am. Breathing is tachypneac and shallow on 2L NC at baseline. Denies pain, shady intact on midline and lap sites, no drainiage. Denies nausea, passing gas, voiding well and did have BM earlier. Will continue to monitor.
--- NOTE | 2019-06-11 10:38 | NUR ---
DINESH attended clinical rounds. The patient's daughter at bedside. The hospitalist discussed home health vs SNF and their recommendation of SNF. The patient was agreeable to SNF. DINESH then followed back up with the patient and his daughter and presented and explained the Patient Choice Form. The patient chose 1) [facility] 2) [facility]. Patient Choice Form signed by the patient and he was provided a copy. DINESH contacted and faxed a referral to both facilities. SW awaiting their screens. The patient is to tentatively discharge today, pending referrals. DINESH presented and explained the IM form to the patient. The patient verbalized understanding, signed, and he was provided a copy. DINESH to continue to follow.
[2019-06-11 11:15] VITALS: BP 109/49; PULSE 89; TEMP 100.2
[2019-06-11] MEDS ORDERED: MIRALAX PA17 GM/Dose PO (13:06)
[2019-06-11] MEDS ORDERED: COLACE 100100 MG/CAP PO (13:06)
--- NOTE | 2019-06-11 13:33 | NUR ---
Removed shady per Dr. Mina, 22 shady removed using staple removal kit, pt tolerated well, will prep for discharge.
[2019-06-11] MEDS ORDERED: DEEP SEA 45 ML45 ML NS (14:02)
[2019-06-11] MEDS ORDERED: MELATIN 3 MG-11 TAB PO (14:02)
--- NOTE | 2019-06-11 14:02 | NUR ---
Renetta, at [facility], reports that they are able to accept the patient and that Dr. Amanda is the accepting physician. DINESH provided the patient's attending, Dr. Mina, with Dr. Amanda's phone number for the [id number]. The [id number] was done and SW updated the patient and his family. The patient is to discharge today, 06/10, to [facility]ing Bed. Transportation to be by private vehicle, via the patient's family. No additional needs at this time.
--- NOTE | 2019-06-11 16:15 | NUR ---
Final two shady removed from hidden lap site above xyphoid process. Changed dressing to PICC line and new biopatch placed on PICC line. Pt tolerated well. Report called for transfer to [facility] nurse Manuel. Pt changed into own clothes, escorted out via w/c with surgical TECHNICAL TRANSLATOR. Left with all belongings, daughter to drive to [facility], criteria met.
[2019-06-11 16:25] VITALS: BP 109/49; PULSE 89; TEMP 100.2
== END 2019-06-11 16:15 | disposition swing bed (61) | DRG 335 ==
LOC: SURG 11:58
PROVIDERS: Family Medicine; Internal Medicine; Nurse Practitioner Family; Physician Assistant; Surgery; ADMIT Surgery
PROC: 4A023N7 Measurement of Cardiac Sampling and Pressure, Left Heart, Percutaneous Approach (ICD-10-PCS; 2019-05-30)
PROC: B2111ZZ Fluoroscopy of Multiple Coronary Arteries using Low Osmolar Contrast (ICD-10-PCS; 2019-05-30)
PROC: 0WQF0ZZ Repair Abdominal Wall, Open Approach (ICD-10-PCS; 2019-05-31)
PROC: 0DNU4ZZ Release Omentum, Percutaneous Endoscopic Approach (ICD-10-PCS; principal; 2019-05-31 12:30)
PROC: 0MN Bursae and Ligaments, Release (ICD-10-PCS; 2019-05-31 12:30)
PROC: 02HV33Z Insertion of Infusion Device into Superior Vena Cava, Percutaneous Approach (ICD-10-PCS; 2019-06-01)
DX: K56.50 Intestinal adhesions [bands], unspecified as to partial versus complete obstruction (principal); J96.21 Acute and chronic respiratory failure with hypoxia; E44.0 Moderate protein-calorie malnutrition; J44.1 Chronic obstructive pulmonary disease with (acute) exacerbation; L76.11 Accidental puncture and laceration of skin and subcutaneous tissue during a dermatologic procedure; E86.0 Dehydration; D63.1 Anemia in chronic kidney disease; E78.00 Pure hypercholesterolemia, unspecified; N18.2 Chronic kidney disease, stage 2 (mild); I12.9 Hypertensive chronic kidney disease with stage 1 through stage 4 chronic kidney disease, or unspecified chronic kidney disease; E83.42 Hypomagnesemia; Z66 Do not resuscitate; E87.6 Hypokalemia; E03.9 Hypothyroidism, unspecified; I25.10 Atherosclerotic heart disease of native coronary artery without angina pectoris; N40.0 Benign prostatic hyperplasia without lower urinary tract symptoms; K21.9 Gastro-esophageal reflux disease without esophagitis; I48.0 Paroxysmal atrial fibrillation; D51.9 Vitamin B12 deficiency anemia, unspecified; Y83.9 Surgical procedure, unspecified as the cause of abnormal reaction of the patient, or of later complication, without mention of misadventure at the time of the procedure; E78.5 Hyperlipidemia, unspecified; Z79.01 Long term (current) use of anticoagulants; Z79.82 Long term (current) use of aspirin; Z95.5 Presence of coronary angioplasty implant and graft; Z87.891 Personal history of nicotine dependence
CPT/HCPCS: 99222; 99231-AI; 99232-AI; 99233-AI; A4217; A4314; A9284; C1751; C1769; C1887; C9113; J0360; J0610; J0690; J0744; J1100; J1200; J1644; J1650; J1815; J2060; J2250; J2270; J2405; J2704; J2795; J2920; J3010; J3411; J3475; J3480; J7030; J7120; J7131; Q9967

== ENCOUNTER 2021-07-26 15:27 | Inpatient (IN) | payer MEDICARE, BC ==
[~2021-07-26] VITALS: Ht 175.3 cm; Wt 73.0 kg
[~2021-07-26 15:27] MED LIST changes: +ALBUTEROL S0.4 MG/ML; +ALBUTEROL0.83 MG/ML IH; +BROVANA15 MCG/2 M IH; +CARDIZEM LA120 MG PO; +COLACE 100100 MG/CAP PO; +DEEP SEA 45 ML45 ML NS; +ELIQUIS 2.5 PO; +K-DUR 10 MEQ T10 MEQ PO; +MELATIN 3 MG-11 TAB PO; +MIRALAX PA17 GM/Dose PO; +RT SPIRIVA18 MCG IH; +SYNTHROID0.075 MG/T PO; +THEO-24 20200 MG/CAP PO; +ZOCOR 20MG20 MG PO
[2021-07-26 17:51] VITALS: BP 128/51; PULSE 100; TEMP 99.4
[2021-07-26] MEDS ORDERED: ELIQUIS 2.5 PO (17:54)
[2021-07-26] MEDS ORDERED: ASPIRIN 81M81 MG/TA2 PO (17:55)
[2021-07-26] MEDS ORDERED: RT SPIRIVA18 MCG IH (18:00)
[2021-07-26 19:16] VITALS: BP 126/56; PULSE 98; TEMP 98.6
[2021-07-26] MEDS ORDERED: CARDIZEM CD 12120 MG PO (21:45)
[2021-07-26] MEDS ORDERED: CALCIUM 600MG+D1 TAB PO (21:47)
--- NOTE | 2021-07-26 22:34 | NUR ---
PT ADMIT BY DAY RN. ALERT AND OX3. PT SON AT BEDSIDE. [place] ASSESS ORDERED REVIEWED. FLUIDS STARTED. ZOSYN. PT VERY GROOGY FIRST FEW HOURS OF SHIFT. STARTING TO WAKE UP MORE LATER IN EVENING. MEDICATED IN INVERNESS PRIOR TO TRANSFER. MINIMAL PAIN SO FAR TONIGHT. NPO FOR ERCP IN AM. SCD ON. CALL LIGHT WI REACH. GI CONSULTING FOR PROCEDURE. POC DISCUSSED.
[2021-07-27] VITALS (12 sets, daily range): BP systolic 102–138; BP diastolic 45–69; PULSE 63–85; TEMP 97.4–98.9
--- NOTE | 2021-07-27 06:03 | NUR ---
RESTED THOUGHT THE NIGHT, DENIES ANY PAIN THIS AM. IV REPLACED ACCIDENTAL REMOVED BY PT. FLUIDS, ZOSYN PER ORDER. NPO, MOUTH SWABS FOR MOISTURE. CONSULTING GI ONCALL THIS AM. CALL LIGHT WI REACH.
--- NOTE | 2021-07-27 06:16 | NUR ---
CONTACTED DR EAGLE, AUDITOR SUPERVISOR GI FOR CONSULT. STATES DR ORTIZ WILL BE DOING ERCP FOR THIS PT AND HE IS AWARE.
[2021-07-27 07:04] LABS: HEMOGLOBIN 11.8 g/dl (13.5-18.0); MEAN CELL VOLUME 99 fl (80.0-100.0); MEAN CORPUSCULAR HEMOGLOBIN 33 pg (27-31); MEAN CORPUSCULAR HGB CONC 33 g/dl (33.0-37.0); MEAN PLATELET VOLUME 10.9 fl (7.4-10.4); PLATELET COUNT 121 K/mm3 (130-400); RED BLOOD COUNT 3.59 M/mm3 (4.20-5.60); REDCELL DISTRIBUTION WIDTH-CV 14.7 % (11.5-14.5)
[2021-07-27 07:12] LABS: HEMATOCRIT 35.6 % (42.0-52.0)
[2021-07-27 07:18] LABS: ALBUMIN 3.3 gm/dL (3.4-4.8); BILIRUBIN,TOTAL 4.4 mg/dL (0.2-1.2); CALCIUM 9.1 mg/dL (8.4-10.2); CREATININE, serum 2.55 mg/dL (0.72-1.25); POTASSIUM 4.7 mmol/L (3.5-4.5); THEOPHYLLINE 3.1 ug/mL (8.0-20.0)
[2021-07-27 08:02] LABS: BAND 8 % (0-10); LYMPHOCYTE 7 % (20.0-51.0); NEUTROPHILS 77 % (42.0-75.2)
[2021-07-27 08:03] LABS: PLATELET ESTIMATE DECREASED (NORMAL)
--- NOTE | 2021-07-27 09:26 | NUR ---
Shift assessment performed. Scheduled medications held due to ERCP at 1200. Patient states that he is "Just sore," but denies any nagging pain. Fluids running as ordered. Tele in use. Patient currently requiring 4 L of O2 via nasal cannulua. VSS. Patient A&O. Blood and clotting noted in urine. Pothuru notified, UA ordered and collected. Patient denies any further pain, discomfort, SOA, or further needs at this time. Call light in reach. Fall percautions in place. Consent obtained and on the chart. Son at the bedside.
[2021-07-27 09:40] LABS: MUCOUS Present (NOT PRESENT); PH 5 (5-8); SQUAMOUS EPITHELIAL None Seen /hpf (0-10); URINE APPEARANCE Hazy (CLEAR/HAZY); URINE BACTERIA None Seen /hpf (NONE SEEN); URINE BILIRUBIN Negative (NEGATIVE); URINE BLOOD 3+ (NEGATIVE); URINE COLOR Amber (YELLOW); URINE GLUCOSE Negative (NEGATIVE); URINE KETONE Negative (NEGATIVE); URINE LEUKOCYTE ESTERASE Negative (NEGATIVE); URINE NITRATE Negative (NEGATIVE); URINE PROTEIN(semi-quant) 2+ (NEGATIVE); URINE RBC >50 /hpf (0-2); URINE UROBILINOGEN Negative (NEGATIVE)
[2021-07-27 09:41] LABS: COLLECTION METHOD CLEAN CATCH
--- NOTE | 2021-07-27 10:10 | NUR ---
Social Work student met with patient to discuss discharge planning. Patient's , Adele Munson, his daughter, Farhana Bird, and his son, Abdiaziz Munson were present at bedside during intake. Patient gave permission to ask his family the intake questions since he is hard of hearing. Patient lives in [place] with his . Patient sees Dr. Daniel Amanda for primary care, and he receives his medications from [facility] in [place]. Patient's states that he utilizes a cane, walker, and a wheelchair for durable medical equiptment, but she states that he uses the walker majority of the time. Patient also has an oxygenator at 3.5L at all times, which the patient's daughter states is also from [facility]. Patient does have a DPOA-HC on file that lists his son, Abdiaziz, as the primary agent. The patient has two alternate agents listed: Farhana, his daughter, and Adele, his . *Discharge plan: pending PT/OT recommendations*
--- NOTE | 2021-07-27 12:09 | NUR ---
First visit from the double surface operator. No needs right now.
--- NOTE | 2021-07-27 13:55 | NUR ---
Patient transferred to floor following ERCP. VSS. Patient A&O. Dynamap in use for post op vitals. Patient denies any pain, discomfort, SOA, or further needs at this time. Patient currenlty of 3L of O2 via nasal cannula. Call light in reach. Fall percautions in place. Family at the bedside.
--- NOTE | 2021-07-27 15:00 | NUR ---
Krystin RT contacted regarding patient needing incentive spirometer.
--- NOTE | 2021-07-27 18:12 | NUR ---
Patient has had an ok day. Post op vitals complete. VSS. Patient A&O. Zelda requiring 3L of O2 via nasal cannula. States that he is sore from procedure, but denies any nagging pain. Hematuria continues with the passing of blood clots. Kyle notified, urology consult placed. Dr Baeza contacted and instructed this RN to continue to monitor and encourage fluids at this time. Patient denies any furth pain, discomfort, SOA, or further needs at this time. Call light in reach. Fall percautions in place. SCDs in use.
--- NOTE | 2021-07-27 22:08 | NUR ---
Received report from day shift. Patient here for ERCP. VSS. Patient is alert and oriented. Denies pain. Assessment performed. IV to R FA with NS running at 100. PM meds administered. Call light within reach.
[2021-07-28 00:05] VITALS: BP 137/60; PULSE 75; TEMP 98.3
[2021-07-28 04:22] VITALS: BP 114/57; PULSE 92; TEMP 98.6
[2021-07-28 05:16] LABS: BASO % 0.2 % (0.0-2.0); EOS # 0.2 K/mm3 (0.0-0.7); EOS % 3.1 % (0.0-4.0); GRAN % 84.6 % (42.2-75.2); HEMOGLOBIN 10.4 g/dl (13.5-18.0); LYMPH # 0.4 K/mm3 (1.2-3.4); LYMPH % 6.8 % (20.0-51.0); MEAN CELL VOLUME 99 fl (80.0-100.0); MEAN CORPUSCULAR HEMOGLOBIN 33 pg (27-31); MEAN CORPUSCULAR HGB CONC 33 g/dl (33.0-37.0); MEAN PLATELET VOLUME 10.4 fl (7.4-10.4); MONO # 0.3 K/mm3 (0.1-0.6); MONO % 4.8 % (1.7-9.3); PLATELET COUNT 95 K/mm3 (130-400); RED BLOOD COUNT 3.16 M/mm3 (4.20-5.60); REDCELL DISTRIBUTION WIDTH-CV 14.7 % (11.5-14.5)
[2021-07-28 05:18] LABS: HEMATOCRIT 31.2 % (42.0-52.0)
[2021-07-28 05:31] LABS: ALBUMIN 2.7 gm/dL (3.4-4.8); BILIRUBIN,TOTAL 2.1 mg/dL (0.2-1.2); CALCIUM 8.2 mg/dL (8.4-10.2); CREATININE, serum 2.36 mg/dL (0.72-1.25); POTASSIUM 4.1 mmol/L (3.5-4.5); TOTAL PROTEIN 5.2 gm/dL (6.2-8.1)
--- NOTE | 2021-07-28 05:51 | NUR ---
Patient had an uneventful night. Patient did not have any signs of hematuria. Patient denied pain throughout shift and ambulated to the bathroom several times.
[2021-07-28 07:36] VITALS: BP 137/62; PULSE 85; TEMP 98
--- NOTE | 2021-07-28 08:56 | NUR ---
PT UP TO RECLINER FOR BREAKFAST. PT UP TO BR WITH SBA X1. RETURNED TO BED AFTER USING BR. PLAN ON DISCHARGE LATER TODAY. VSS, ASSESSMENTS COMPLETE. PT DENIES PAIN OR OTHER NEEDS.
--- NOTE | 2021-07-28 09:09 | NUR ---
Social Work student met with patient to discuss outpatient therapy's recommendation of home health. Patient repeatedly denied having home health in the home. SW student asked patient why he feels he does not need it and patient stated, "I have been like this for a long time and I manage. All they [the doctors] did was rummage some things around in my stomach." SW student asked the patient if he knows what home health is, and he stated that he does and completely confirmed the definition of how they help to this SW. SW student compromised with the patient by leaving a medicare list of home health agencies that service [place] in case he wanted to reach out later. Patient agreed. SW emphasized the urge for safety for the patient in his home. Patient thanked this SW and again stated that he would not need home health.
[2021-07-28 12:00] VITALS: BP 165/72; PULSE 83; TEMP 97.2
== END 2021-07-28 16:00 | disposition home or self-care (01) | DRG 445 ==
LOC: MEDICAL 15:27 → SURG 17:30
PROVIDERS: Internal Medicine Gastroenterology; Nurse Practitioner Family; Physician Assistant; ADMIT Family Medicine
PROC: 0FC98ZZ Extirpation of Matter from Common Bile Duct, Via Natural or Artificial Opening Endoscopic (ICD-10-PCS; principal; 2021-07-27 12:00)
DX: K80.50 Calculus of bile duct without cholangitis or cholecystitis without obstruction (principal); J96.11 Chronic respiratory failure with hypoxia; E78.5 Hyperlipidemia, unspecified; I48.0 Paroxysmal atrial fibrillation; I25.10 Atherosclerotic heart disease of native coronary artery without angina pectoris; J44.9 Chronic obstructive pulmonary disease, unspecified; N18.9 Chronic kidney disease, unspecified; I12.9 Hypertensive chronic kidney disease with stage 1 through stage 4 chronic kidney disease, or unspecified chronic kidney disease; N40.0 Benign prostatic hyperplasia without lower urinary tract symptoms; E03.9 Hypothyroidism, unspecified; F41.9 Anxiety disorder, unspecified; K21.9 Gastro-esophageal reflux disease without esophagitis; K86.89 Other specified diseases of pancreas; R31.0 Gross hematuria; Z96.642 Presence of left artificial hip joint; Z79.01 Long term (current) use of anticoagulants; Z95.5 Presence of coronary angioplasty implant and graft; Z79.82 Long term (current) use of aspirin; Z87.891 Personal history of nicotine dependence; Z99.81 Dependence on supplemental oxygen
CPT/HCPCS: 99223-AI; 99233-AI; 99239; A9284; C1769; J2543; J2704; J7030; Q9967